=== PATIENT | female | born 1990 | race Caucasian/White ===

== ENCOUNTER 2020-04-30 18:02 | Inpatient (IN) | payer MEDICAID, SELFPAY ==
[2020-04-30 19:10] VITALS: BP 113/74; PULSE 85; RESP 18; TEMP 36.8; O2SAT 99; BMI 17.3
--- NOTE | 2020-04-30 19:57 | ED_ITS ---
HPI - Psych General: Chief Complaint: Psychiatric Symptoms Stated Complaint: mhe Time Seen by Provider: 04/30/20 19:41 Source: patient Mode of arrival: ambulatory Limitations: no limitations History of Present Illness: HPI Narrative: Rita is a 29-year-old female who comes in complaining of suicidal ideation. Patient states she is depressed but is also had a spiritual awakening. She has no specific plan at this time but she believes she is a significant risk to herself should she go home. She is requesting admission for further stabilization and treatment. Review of Systems Const: Denies: fever(s), chills, body aches, fatigue, malaise or diaphoresis Eyes: Denies: change in vision, blurry vision, photophobia, eye discomfort, eye discharge, eye redness or yellow eyes ENMT: Denies: throat pain, odynophagia, hoarseness, swelling of lips/tongue, ear or mastoid pain, ear discharge, change in hearing or nasal discharge Card: Denies: chest pain, palpitations, irregular heart rhythm, edema, lightheadedness, syncope, pre-syncope, dyspnea on exertion or orthopnea Resp: Denies: dyspnea, productive cough, non-productive cough, wheezing, hemoptysis or chest congestion GI: Denies: abdominal pain, nausea, vomiting, hematemesis, coffee ground emesis, heartburn, diarrhea, constipation, GI cramping, hematochezia or melena : Denies: flank pain, dysuria, urinary frequency, urinary urgency or hematuria Musc: Denies: neck pain, back pain, extremity pain, extremity swelling, joint pain, joint swelling, joint redness, joint warmth or joint stiffness Skin/Breast: Denies: rash, pruritus, erythema, skin pain or skin tenderness Neuro: Denies: headache(s), numbness in extremities, weakness in extremities, sensory changes, lack of coordination, difficulty walking, dizziness, vertigo, confusion, Slurred speech present or seizure-like activity Asad/Lymph: Denies: easy bruising, easy bleeding, petechiae, purpura or e nlarged lymph nodes All/Imm: Denies: urticaria, throat swelling, tongue swelling, facial swelling or acute wheezing [facility] ED PFSH: Medical History (Updated 04/30/20 @ 20:34 by Kathryn Du) No pertinent past medical history Physical Exam Const: COMMON NORMALS: no acute distress, patient oriented x3, no limitations and alert GENERAL APPEARANCE: cooperative HENMT: COMMON NORMALS: normocephalic, atraumatic, external ears normal, EAC's normal and Normal external nose present HEAD & SCALP: normal to inspection, normocephalic and atraumatic FACE & SINUS: normal facial exam and face symmetric NOSE: Normal external nose present and Normal nares present EXTERNAL EAR: Yes external ears normal EXTERNAL AUDITORY CANAL: EAC's normal MOUTH: Normal oral and palatal mucosa present, lip normal and tongue normal Eye: COMMON NORMALS: Equal, round and reactive pupils present and conjunctivae normal GENERAL EYE: appearance normal, both eyes and all related structures ALIGNMENT: Yes alignment normal PERIORBITAL: periorbital findings normal EYELID: eyelids normal CONJUNCTIVA: Yes conjunctivae normal SCLERA: sclerae normal PUPIL: Yes Equal, round and reactive pupils present Neck/C-Spine: COMMON NORMALS: full ROM, no lymphadenopathy, supple, no meningeal signs and no JVD GENERAL: Yes normal visual inspection and Yes trachea midline Chest: COMMONS NORMALS: normal inspection of the chest and normal palpation of entire chest wall Resp: COMMON NORMALS: normal respiratory effort, No retractions, No use of accessory muscles and clear to auscultation bilaterally EFFORT & INSPECTION: Yes able to speak in complete sentences and Yes symmetric chest movement AUSCULTATION: clear to auscultation bilaterally, no crackles, no rales, no rhonchi and no wheezes Cardio: COMMON NORMALS: no JVD, regular rate, regular rhythm, S1 normal heart sound present and S2 normal heart sound present RATE: regular rate RHYTHM: regular rhythm HEART SOUNDS: S1 normal heart sound present, S2 normal heart sound present, no click, no gallops, no murmurs and no rubs GI: COMMON NORMALS: Soft to palpation and No hepatosplenomegaly present PALPATION: Yes Soft to palpation, No Tenderness to palpation present (GI), No Guarding due to palpation present (GI), No Rigid due to palpation, Yes No hepatosplenomegaly present, No Hernia present, No Palpable mass present and No Pulsatile mass present : COMMON NORMALS: Yes no CVA tenderness BLADDER/KIDNEY EXAM: Yes no CVA tenderness EXTERNAL FEMALE EXAM: No Hernia present Back/Pelvis: COMMON NORMALS: no CVA tenderness, thoracic and lumbar spine normal to inspection, no thoracic nor lumbar tenderness and thoraco-lumbar ROM normal Extremity: COMMON NORMALS: normal to inspection, full ROM, capillary refill normal, no joint enlargement, no clubbing, cyanosis or edema and no calf tenderness Neuro: COMMON NORMALS: patient oriented x3, CN's II-XII intact bilaterally, moves all extremities, no focal motor deficits and no sensory deficits noted SENSORIUM/ORIENTATION: Yes alert MENINGEAL SIGNS: Yes no meningeal signs SPEECH: speech normal Psych: COMMON NORMALS: mental status grossly normal, Normal thought process present, cooperative, normal affect, speech normal and activity/motor behavior normal SPEECH: Yes normal speech THOUGHT PROCESS: Normal thought process present Skin: COMMON NORMALS: no rashes or lesions noted, turgor normal, no jaundice, no petechiae and no mottling GENERAL SKIN EXAM: no rashes or lesions noted and turgor normal MDM - Psych 2 MDM Narrative: Medical decision making narrative: The case was reviewed with Dr. Arteaga and he agrees to admit to the neuropsychiatric unit for further evaluation and care. EKG Data^: EKG 1: Attestation: I personally reviewed and interpreted this EKG as follows: EKG interpretation date: 04/30/20 EKG interpretation time: 20:20 Interpretation: Normal sinus rhythm at 60 beats a minute, normal axis, no blocks, normal intervals. Normal inverted juvenile T waves. Discharge Plan Discharge Patient Disposition: Admitted As Inpatient Admit Provider: Len Arteaga Clinical Impression: Suicidal ideation, Acute psychosis Condition: Stable Discharge Date/Time: 04/30/20 22:02 Coding Level of Care Code ED Cigar Packer for Chg Fwd Exam Comprehensive
[2020-04-30 20:45] LABS: Basophils # 0.1 10^3/uL (0.0-0.1); Basophils % 0.7 %; Eosinophils % 0.4 %; Hematocrit 47.3 % (37.0-47.0); Hemoglobin 15.7 g/dL (11.5-15.3); Lymphocytes # 1.9 10^3/uL (0.8-4.8); Lymphocytes % 22.5 %; Mean Corpuscular HGB Conc 33.2 g/dL (30.0-36.0); Mean Corpuscular Hemoglobin 29.4 pg (28.0-34.0); Mean Corpuscular Volume 88.6 fL (81-99); Mean Platelet Volume 11.4 fL (7.4-10.4); Monocytes # 0.7 10^3/uL (0.2-0.9); Monocytes % 8.3 %; Neutrophils # 5.65 10^3/uL (1.8-7.7); Neutrophils % 67.9 %; Nucleated Red Blood Cells % 0 %; Platelet Count 317 10^3/cmm (130-400); Red Blood Count 5.34 10^6/uL (4.1-5.3); Red Cell Distribution Width 13.3 % (12.1-15.1); White Blood Count 8.3 10^3/uL (4.0-10.0)
[2020-04-30 20:55] LABS: Add Urine Microscopic? YES; Bilirubin Urine 1+ (Negative); Blood Urine Trace (Negative); Glucose Urine UA Norm (Normal); Ketones Urine 1+ (Negative); Leukocyte Esterase Urine 1+ (Negative); Nitrate Urine Negative (Negative); Protein Urine Trace (Negative); Specific Gravity, Urine 1.025 (1.005-1.030); Urine Color Yellow (Yellow); Urobilinogen Urine 1 mg/dL (Negative); pH Urine 5 (5-7)
[2020-04-30 20:58] LABS: Add Urine Culture? No; Bacteria Urine 4+ /hpf; Mucus Urine 4+ /hpf; RBC Urine 0-4 /hpf (0-2); Squamous Epithelial Cell Urine 40-55 /hpf (0-5); WBC Urine 15-25 /hpf (0-5)
[2020-04-30 21:15] LABS: Alanine Aminotransferase 7 U/L (0-33); Albumin Level 5.4 g/dL (3.5-5.2); Alkaline Phosphatase 65 IU/L (35-105); Anion Gap 16.9 (5-19); Aspartate Amino Transferase 17 U/L (0-32); Blood Urea Nitrogen 5 mg/dL (6-20); Calcium 9.8 mg/dL (8.5-10.5); Carbon Dioxide 28 mmol/L (22-29); Chloride 97 mmol/L (98-107); Globulin 3.2 g/dL (1.3-4.6); Glomerular Filtration Rate 84.2 mL/min (90-130); Glucose 115 mg/dL (65-115); Osmolality Calculated 286 mOsm/kg (285-295); Sodium 139 mmol/L (136-145); Thyroid Stimulating Hormone 1.24 uIU/mL (0.27-4.20); Total Bilirubin 0.5 mg/dL (0.15-1.2); Total Protein 8.6 g/dL (6.6-8.7)
[2020-04-30 21:16] LABS: Acetaminophen < 5.0 ug/mL (10-30); Alcohol Level < 10 mg/dL (0-10); Salicylate < 0.3 mg/dL (3-10)
[2020-04-30 21:17] LABS: Potassium 2.9 mmol/L (3.5-5.1)
[2020-04-30 21:21] LABS: Amphetamines Screen Urine Negative (Negative); Barbiturates Screen Urine Negative (Negative); Benzodiazepines Screen Urine Negative (Negative); Cocaine Screen Urine Negative (Negative); Opiate Screen Urine Negative (Negative); PCP Screen Urine Negative (Negative); THC Screen Urine Positive (Negative)
[2020-04-30] MEDS: potassium chloride ER 10 mEq Tablet 60 MEQ PO (21:37)
[2020-04-30] MEDS: LORazepam 1 mg Tablet PO (21:38)
[2020-04-30 21:40] LABS: HCG Qualitative Urine. Negative (Negative)
[2020-04-30 21:57] LABS: Magnesium 2.3 mg/dL (1.7-2.3)
[2020-04-30 22:03] LABS: HCG, Serum Qual Negative (Negative)
[2020-04-30 22:14] VITALS: BP 122/83; PULSE 79; RESP 17; TEMP 36.6; O2SAT 97
--- NOTE | 2020-04-30 22:58 | PC.NURSE ---
Skin assessment completed by female staff members revealed no wounds or injuries.
[2020-05-01 06:00] VITALS: BP 87/57; PULSE 71; RESP 17; TEMP 36.3; O2SAT 98
[2020-05-01] MEDS: hyDROXYzine 25 mg Capsule 50 MG PO ×2 (09:42→16:25)
--- NOTE | 2020-05-01 09:46 | PC.NURSE ---
PRN VISTARIL ADMINISTERED VISTARIL 50MG PO FOR PT C/O INCREASING ANXIETY. WILL MONITOR FOR MEDICATION EFFECTIVENESS.
[2020-05-01 14:00] VITALS: BP 137/99; PULSE 89; RESP 18; TEMP 36.6
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
[2020-05-01 17:42] LABS: Alanine Aminotransferase < 5 U/L (0-33); Albumin Level 4.4 g/dL (3.5-5.2); Alkaline Phosphatase 52 IU/L (35-105); Anion Gap 15.7 (5-19); Aspartate Amino Transferase 13 U/L (0-32); Blood Urea Nitrogen 11 mg/dL (6-20); Calcium 9.8 mg/dL (8.5-10.5); Carbon Dioxide 23 mmol/L (22-29); Chloride 101 mmol/L (98-107); Globulin 2.7 g/dL (1.3-4.6); Glomerular Filtration Rate 84.2 mL/min (90-130); Glucose 94 mg/dL (65-115); Osmolality Calculated 281 mOsm/kg (285-295); Potassium 3.7 mmol/L (3.5-5.1); Sodium 136 mmol/L (136-145); Total Bilirubin 0.5 mg/dL (0.15-1.2); Total Protein 7.1 g/dL (6.6-8.7)
[2020-05-01 19:39] VITALS: BP 101/70; PULSE 77; RESP 17; TEMP 37.1; O2SAT 96
[2020-05-01] MEDS: gabapentin 400 mg Capsule PO (20:46)
[2020-05-01] MEDS: quetiapine 25 mg Tablet 50 MG PO (20:46)
[2020-05-02 06:00] VITALS: BP 96/62; PULSE 59; RESP 16; TEMP 36.6; O2SAT 98
--- NOTE | 2020-05-02 13:26 | NPU.GN ---
Rita was not super active in the group session but was paying attention. There were a few instances that she did speak up and participated well. She mostly listened but did engage with the group well when she chose to.
--- NOTE | 2020-05-02 13:51 | P.PN_ITS ---
Subjective NPU Subjective: Interval history: Other presents today reporting that she is feeling a little better. We discussed the possibility of utilizing something other than the Seroquel to help with her thought disorder including the risks, benefits and alternatives and she understood and reported desire to only stay on the medication she is on. She did report that she would be open to increasing the Seroquel tomorrow but is looking towards relieving as soon as possible. She agreed that she would work with the social work team to make sure appropriate follow-up was in place. She reports eating okay and sleeping better. Mental Status Exam MSE Comments: This is an underweight white female with adequate dress, grooming and eye contact. With slightly abnormal facies with some dental abno rmalities in shape and structure. No abnormal movements. Cooperative with exam in no acute distress. Speech was decreased rate and volume and slightly dysarthric. Mood described as good, affect elevated. Thought process mostly organized. Thought content: Patient denied any suicidal or homicidal ideation, there were no delusions reported but she does have paranoid and hyperreligious/hyper spiritual delusions, there is no auditory visual hallucinations reported. Attention and concentration were intact in memory was somewhat reliable, but none were formally tested. She is alert and oriented x3. Insight and judgment are limited, impulse control is limited, intellectual ability is impaired. Vitals/I&O/Wt Last Vital Signs Temp 97.8 F 05/02/20 06:00 Pulse 59 L 05/02/20 06:00 Resp 16 05/02/20 06:00 BP 96/62 05/02/20 06:00 Pulse Ox 98 05/02/20 06:00 Weight last 48 hrs Weight 47.627 kg Weight 47.174 kg Data NPU : 04/30/20 20:26 05/01/20 17:00 A&P Additional A&P Information (1) Suicidal ideation: (2) Acute psychosis: This is a 29-year-old white female with a long history of mental health issues who presents with some active psychosis reporting a possible openness to a trial of medication if we can identify what she was on previously. 1. Continue current medication. 2. Continue every 15 minute checks for safety. 3. Intermittent, group and milieu therapy. 4. Encourage follow-up with sober living treatment at the highest level of care to which she is willing to commit. Involuntary Hold Information 96 Hour Hold: 96 Hour Involuntary Admission: Yes 96 Hour Hold Ending Date: 04/29/20 96 Hour Hold Ending Time: 00:01 Attestations NPU Medical Necessity Statement*: Inpatient hospitalization is medically necessary and the clinically appropriate intervention at this time. We will add/monitor medications and make changes as indicated. Likely length of stay 2-4 days. Coding Level of Care Code Acute Coroner Forensic Technician for [facility] [place]
[2020-05-02 14:00] VITALS: BP 110/75; PULSE 59; RESP 18; TEMP 37.1; O2SAT 100
--- NOTE | 2020-05-02 14:54 | PC.RESP ---
SMOKING CESSATION INFORMATION SENT TO PATIENT.
[2020-05-02 19:45] VITALS: BP 116/79; PULSE 69; RESP 16; TEMP 36.9; O2SAT 96
[2020-05-02] MEDS: quetiapine 25 mg Tablet 50 MG PO (20:32)
[2020-05-02] MEDS: gabapentin 400 mg Capsule PO (20:33)
[2020-05-03 06:00] VITALS: BP 136/91; PULSE 80; RESP 17; TEMP 36.5; O2SAT 98
[2020-05-03] MEDS: escitalopram 10 mg Tablet PO (12:05)
[2020-05-03 13:21] VITALS: BP 116/77; PULSE 65; RESP 18; TEMP 36.9; O2SAT 97
[2020-05-03 13:59] VITALS: BP 116/77; PULSE 65; RESP 18; TEMP 36.9; O2SAT 97
--- NOTE | 2020-05-03 15:15 | PM.NPN ---
Subjective NPU Subjective: Interval history: Rita presents today reporting that she feels like she is doing okay on the medication but still having some depression/anxiety. We talked about her past medications and discussed the risks, benefits and alternatives of a trial of Lexapro and she understood and agreed to proceed as documented in this note. She has been talking to her family and reports that after discharge she definitely has a place to go but everyone just wants to make sure that she is doing well when she discharges. She reports that she is eating okay and sleeping a little better. Mental Status Exam MSE Comments: This is an underweight white female with adequate dress, grooming and eye contact. With slightly abnormal facies with some dental abnormalities in shape and structure. No abnormal movements. Cooperative with exam in no acute distress. Speech was more normal rate and volume and slightly dysarthric. Mood described as okay, affect more calm. Thought process mostly organized. Thought content: Patient denied any suicidal or homicidal ideation, there were no delusions reported and she is having less paranoid and hyperreligious/hyper spiritual delusions, there is no auditory visual hallucinations reported. Attention and concentration were intact in memory was somewhat reliable, but none were formally tested. She is alert and oriented x3. Insight and judgment are limited, but improving, impulse control is limited, intellectual ability is impaired. Vitals/I&O/Wt Last Vital Signs Temp 97.7 F 05/03/20 20:03 Pulse 64 05/03/20 20:03 Resp 18 05/03/20 20:03 BP 107/72 05/03/20 20:03 Pulse Ox 98 05/03/20 20:03 Data NPU : 04/30/20 20:26 05/01/20 17:00 A&P Assessment and plan (1) Anxiety and depression: Status: Acute Additional A&P Information (1) Suicidal ideation: (2) Acute psychosis: This is a 29-year-old white female with a long history of mental health issues who presents with some active psychosis reporting a possible openness to a trial of medication if we can identify what she was on previously. 1. Continue current medication. Except add Lexapro 10 mg p.o. every morning. 2. Continue every 15 minute checks for safety. 3. Intermittent, group and milieu therapy. 4. Encourage follow-up with sober living treatment at the highest level of care to which she is willing to commit. Involuntary Hold Information 96 Hour Hold: 96 Hour Involuntary Admission: Yes 96 Hour Hold Ending Date: 04/29/20 96 Hour Hold Ending Time: 00:01 Attestations NPU Medical Necessity Statement*: Inpatient hospitalization is medically necessary and the clinically appropriate intervention at this time. We will add/monitor medications and make changes as indicated. Likely length of stay 1-3 days. Coding Level of Care Code Acute Patient Access Manager for [facility] Fwd Diagnoses Anxiety and depression F41.9; F32.9
[2020-05-03 20:03] VITALS: BP 107/72; PULSE 64; RESP 18; TEMP 36.5; O2SAT 98
[2020-05-03] MEDS: gabapentin 400 mg Capsule PO (20:24)
[2020-05-03] MEDS: quetiapine 100 mg Tablet PO (20:24)
[2020-05-04 06:00] VITALS: BP 101/71; PULSE 68; RESP 17; TEMP 36.7; O2SAT 98
[2020-05-04] MEDS: escitalopram 10 mg Tablet PO (07:44)
--- NOTE | 2020-05-04 13:21 | NPU.GN ---
Rita was the first to speak up at group this afternoon and had a lot of personal input that she added to the session. She spoke positively about her experiences and how they have shaped her.
--- NOTE | 2020-05-04 13:57 | P.PN_ITS ---
Subjective NPU Subjective: Interval history: Today reporting that she was tolerating the medications well. Her had called and expressed some concerns about the Neurontin. We had a discussion of the risk benefits and alternatives to all the medications and she understood and agreed to proceed as documented this note. We agreed to leave the Neurontin as it is with a plan for family support around the medication. We also discussed the plan for discharge tomorrow. She reports she is eating and sleeping fine. Mental Status Exam MSE Comments: This is an underweight white female with adequate dress, grooming and eye contact. With slightly abnormal facies with some dental abnormalities in shape and structure. No abnormal movements. Cooperative with exam in no acute distress. Speech was more normal rate and volume and slightly dysarthric. Mood described as better, affect more calm. Thought process mostly organized. Thought content: Patient denied any suicidal or homicidal ideation, there were no delusions reported or noted, there is no auditory or visual hallucinations reported. Attention and concentration were intact and memory was mostly reliable, but none were formally tested. She is alert and oriented x3. Insight and judgment are improving, impulse control is limited, but improving, intellectual ability is limited. Vitals/I&O/Wt Last Vital Signs Temp 97.7 F 05/04/20 22:00 Pulse 69 05/04/20 22:00 Resp 19 H 05/04/20 22:00 BP 106/67 05/04/20 22:00 Pulse Ox 96 05/04/20 22:00 Data NPU : 04/30/20 20:26 05/01/20 17:00 A&P Assessment and plan (1) Acute psychosis: Status: Acute (2) Suicidal ideation: Status: Acute (3) Anxiety and depression: Status: Acute Additional A&P Information This is a 29-year-old white female with a long history of mental health issues who presents with some active psychosis reporting a possible openness to a trial of medication if we can identify what she was on previously. 1. Continue current medication. 2. Continue every 15 minute checks for safety. 3. Intermittent, group and milieu therapy. 4. Encourage follow-up with sober living treatment at the highest level of care to which she is willing to commit. Involuntary Hold Information 96 Hour Hold: 96 Hour Involuntary Admission: Yes 96 Hour Hold Ending Date: 04/29/20 96 Hour Hold Ending Time: 00:01 Attestations NPU Medical Necessity Statement*: Inpatient hospitalization is medically necessary and the clinically appropriate intervention at this time. We will add/monitor medications and make changes as indicated. Likely length of stay 1-2 days. Tentative plan for discharge tomorrow. 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
[2020-05-04 14:00] VITALS: BP 101/68; PULSE 55; RESP 18; TEMP 36.6; O2SAT 98
[2020-05-04] MEDS: quetiapine 100 mg Tablet PO (21:22)
[2020-05-04] MEDS: hyDROXYzine 25 mg Capsule 50 MG PO (21:22)
[2020-05-04] MEDS: gabapentin 400 mg Capsule PO (21:22)
[2020-05-04 22:00] VITALS: BP 106/67; PULSE 69; RESP 19; TEMP 36.5; O2SAT 96
[2020-05-05 05:55] VITALS: BP 117/75; PULSE 77; RESP 16; TEMP 36.8; O2SAT 98
[2020-05-05] MEDS: escitalopram 10 mg Tablet PO (08:14)
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
[2020-05-05 12:48] VITALS: BP 117/75; PULSE 77; RESP 16; TEMP 36.8; O2SAT 98
[2020-05-05 22:00] VITALS: BP 117/75; PULSE 77; RESP 16; TEMP 36.8; O2SAT 98
== END 2020-05-05 13:22 | disposition home or self-care (01) | DRG 885 ==
LOC: ER 19:41 → NP 20:32
PROVIDERS: Emergency Medicine; Nurse Practitioner Family; Admitting Provider Psychiatry & Neurology Psychiatry; Family Provider Family Medicine; PCP Specialist; Visit Provider Psychiatry & Neurology Psychiatry
DX: F23 Brief psychotic disorder (principal); R45.851 Suicidal ideations; F41.8 Other specified anxiety disorders
CPT/HCPCS: 12345; 36415; 80053; 80306; 80307; 81001; 81025; 83735; 84443; 84703; 85025; 99284

== ENCOUNTER → 2020-06-14 08:40 | Outpatient (BNVA) | payer MEDICAID, SELFPAY | PROVIDERS: Family Provider Family Medicine; PCP Specialist; Visit Provider Psychiatry & Neurology Psychiatry | DX: F41.9 Anxiety disorder, unspecified (principal); F32.9 Major depressive disorder, single episode, unspecified; F79 Unspecified intellectual disabilities | CPT/HCPCS: 90792 ==

== ENCOUNTER → 2020-08-09 08:16 | Outpatient (BNVA) | payer BC, SELFPAY | PROVIDERS: Family Provider Family Medicine; PCP Specialist; Visit Provider Psychiatry & Neurology Psychiatry | DX: F41.9 Anxiety disorder, unspecified (principal); F32.9 Major depressive disorder, single episode, unspecified; F79 Unspecified intellectual disabilities | CPT/HCPCS: 99214 ==

== ENCOUNTER → 2020-08-30 14:19 | Outpatient (BNVA) | payer BC, SELFPAY | PROVIDERS: Family Provider Family Medicine; PCP Specialist; Visit Provider Psychiatry & Neurology Psychiatry | DX: F32.9 Major depressive disorder, single episode, unspecified (principal); Z79.899 Other long term (current) drug therapy | CPT/HCPCS: 80061; 83036 ==

== ENCOUNTER → 2020-11-04 12:53 | Outpatient (BNVA) | payer BC, SELFPAY ==
[2020-09-09 11:08] VITALS: BP 112/76; BMI 19.3
== END ==
PROVIDERS: Family Provider Family Medicine; PCP Specialist; Visit Provider Counselor Professional
DX: F41.9 Anxiety disorder, unspecified (principal); F32.9 Major depressive disorder, single episode, unspecified; F84.0 Autistic disorder
CPT/HCPCS: 90834

== ENCOUNTER → 2020-11-29 12:47 | Outpatient (BNVA) | payer BC, SELFPAY ==
[2020-09-09 11:08] VITALS: BP 112/76; BMI 19.3
== END ==
PROVIDERS: Family Provider Family Medicine; PCP Specialist; Visit Provider Psychiatry & Neurology Psychiatry
DX: F41.9 Anxiety disorder, unspecified (principal); F32.9 Major depressive disorder, single episode, unspecified; F79 Unspecified intellectual disabilities
CPT/HCPCS: 99214

== ENCOUNTER → 2021-01-31 12:48 | Outpatient (BNVA) | payer BC, SELFPAY ==
[2020-09-09 11:08] VITALS: BP 112/76; BMI 19.3
== END ==
PROVIDERS: PCP Specialist; Visit Provider Psychiatry & Neurology Psychiatry
DX: F41.9 Anxiety disorder, unspecified (principal); F32.9 Major depressive disorder, single episode, unspecified; F41.1 Generalized anxiety disorder; F79 Unspecified intellectual disabilities
CPT/HCPCS: 99214

== ENCOUNTER 2022-01-02 21:45 | Emergency (ER) | payer BC, MEDICAID, SELFPAY ==
[2020-09-09 11:08] VITALS: BP 112/76; BMI 19.3
[2022-01-02 21:59] VITALS: BP 101/70; PULSE 109; RESP 16; TEMP 36.4; O2SAT 98
--- NOTE | 2022-01-02 22:05 | W.ED.DENTAL ---
HPI - Dental/Oral General: Chief complaint: Dental/Oral Stated complaint: Toothache Time Seen by Provider: 01/02/22 21:46 History of Present Illness: Patient is a 31-year-old female comes to the ED with dental pain. Symptoms started approximately 3 days ago. She states her dental pain is mild and she rates it currently 1 out of 10. Her gums on the upper left jaw are swollen and painful. Denies any fevers or any other complaints. Teeth map: 1. extensive dental decay and gingival swelling Associated symptoms: Denies fever(s) or odynophagia Review of Systems Const: Denies: fever(s), chills or fatigue Eyes: Denies: change in vision or eye discomfort ENMT: Reports: dental pain; Denies: throat pain, odynophagia, nasal discharge or nasal congestion Card: Denies: chest pain, palpitations, edema, swelling of feet/ankles, dyspnea on exertion or orthopnea Resp: Denies: dyspnea, productive cough or non-productive cough GI: Denies: abdominal pain, nausea, vomiting, diarrhea, constipation or hematochezia : Denies: flank pain, dysuria or hematuria Musc: Denies: neck pain, back pain or extremity swelling Skin/Breast: Denies: rash or new lesions Neuro: Denies: headache(s), numbness in extremities or weakness in extremities PFSH ED PFSH: Medical History JAYSON (generalized anxiety disorder) Intellectual disability No pertinent past medical history Family History Other Autism Diabetes Hypertension Social History Smoking and tobacco status: current every day smoker cigarettes Packs smoked per day: 1 Years cigarettes smoked: 10 Second hand smoke exposure: Yes Alcohol intake: current Alcohol intake frequency: holidays/special occasions only Adopted: No Caregiver/support person: No Lives independently: Yes Household members: spouse and children Housing: House Marital status: Marital status details: 11 years Number of children: 1 Number of grandchildren: 0 Highest education level completed: 11th Grade Education level details: working on [employer] service: No Current occupational status: unemployed Pets and animals: Yes Pets & animals: cat(s) and dog(s) History of recent travel: Yes (Went to [place] last saturday) Out of state: Yes Out of country: No Leisure activites: games and other Leisure activities details: watch hulu and netflicks Sexually active: Yes Current gender identity: Female Karen/Evangelical: None Special karen needs: No Agree to transfusion: Yes Financial difficulty paying for basics: Hard Female Reproductive History: Date of last menstrual period: 08/16/20 Para: 1 Spontaneous abortions: No Physical Exam Const: COMMON NORMALS: no acute distress, patient oriented x3 and alert GENERAL APPEARANCE: cooperative and comfortable HENMT: COMMON NORMALS: normocephalic HEAD & SCALP: normocephalic MOUTH: Normal oral and palatal mucosa present TEETH & GINGIVA: Yes caries and Yes poor dentition TEETH & GINGIVA IMAGES: 1. Patient has extensive dental caries and decay with teeth numbers 12 through 16 along with gingival edema and tenderness. THROAT: posterior oropharynx normal and uvula midline Neck/C-Spine: COMMON NORMALS: supple GENERAL: Yes normal visual inspection Resp: COMMON NORMALS: normal respiratory effort, No retractions, No use of accessory muscles and clear to auscultation bilaterally AUSCULTATION: clear to auscultation bilaterally Cardio: COMMON NORMALS: regular rate, regular rhythm, S1 normal heart sound present, S2 normal heart sound present, No gallops present (Cardio), No clicks present (Cardio), No murmurs present (Cardio) and Peripheral pulses 2+ throughout RATE: regular rate RHYTHM: regular rhythm HEART SOUNDS: S1 normal heart sound present and S2 normal heart sound present PERIPHERAL PULSES: Peripheral pulses 2+ throughout GI: COMMON NORMALS: Normal to inspection, nondistended, normoactive bowel sounds present, Soft to palpation, non-tender and no masses PALPATION: Yes Soft to palpation : COMMON NORMALS: Yes no CVA tenderness BLADDER/KIDNEY EXAM: Yes no CVA tenderness Back/Pelvis: COMMON NORMALS: no CVA tenderness Extremity: COMMON NORMALS: normal to inspection Neuro: COMMON NORMALS: patient oriented x3 and moves all extremities SENSORIUM/ORIENTATION: Yes alert Skin: GENERAL SKIN EXAM: dry skin Course Vital Signs: Vital signs: Vital Signs Temperature 97.5 F L 01/02/22 21:59 Pulse Rate 109 H 01/02/22 21:59 Respiratory Rate 16 01/02/22 21:59 Blood Pressure 101/70 01/02/22 21:59 Pulse Oximetry 98 01/02/22 21:59 MDM - Dental/Oral Medical Decision Making Patient is a 31-year-old female comes to the ED with dental pain and gingival swelling on back upper left jaw. Patient says her pain is mild and rates it a 1 out of 10. Vitals are stable. Patient has poor dentition and extensive dental caries throughout her mouth. Worst dental decay and caries in teeth #12 through 16 along with gingival edema and tenderness. Patient diagnosed with infected dental caries and was given a dose of clindamycin here in the ED. She was discharged home with prescription for clindamycin, lidocaine viscus and Tylenol. She was told the contact her dentist and set up an appoint with them [place] to address dental pain. Return ED precautions given. Patient is done agree with plan. Discharge Plan Discharge Patient Disposition: Home Clinical Impression: Infected dental caries Condition: Stable Prescriptions: New clindamycin HCl 150 mg capsule 300 mg PO QID 7 Days Qty: 56 0RF Lidocaine Viscous 2 % solution 1 applic mucous membrane BID PRN (Reason: pain) Qty: 100 0RF Tylenol Extra Strength 500 mg tablet 1,000 mg PO Q8H PRN (Reason: fever or pain) Qty: 20 0RF No Action escitalopram oxalate 20 mg tablet 20 mg PO DAILY 30 Days Qty: 30 0RF gabapentin 400 mg capsule 400 mg PO TID 30 Days Qty: 90 0RF prazosin 1 mg capsule 1 mg PO .qhs 30 Days Qty: 30 0RF quetiapine 100 mg tablet 200 mg PO BEDTIME 30 Days Qty: 60 0RF Discharge Orders: Discharge ED (Routine); Ordered 01/02/22 Ordered By: Yaron Jackson Referrals: Dhaval Nicholson MD [Primary Care Provider] - Discharge Diet: Regular Discharge Activity: Resume usual activity Patient Instructions: Dental Caries (Cavities) Activity Restrictions/Additional Instructions: Follow-up with dentist as soon as possible to have dental pain evaluated. Take medications as prescribed. Return to the ER or your medical provider if condition worsens. Please read and understand discharge instructions. Thank you for choosing [facility] for your healthcare needs today. Please realize this is an emergency room and that we are providing you with a medical screening exam and this may not be complete and all inclusive of all the testing and or work up that you may need to determine your ailment or severity of your illness. It is very important that you follow up as instructed or that you return to the Emergency Department should you have concerns or if your condition changes or worsens in any way. Coding Level of Care Code ED Auto Repair Technician for [place] [place]
[2022-01-02 22:21] VITALS: BP 101/70; PULSE 109; RESP 16; TEMP 36.4; O2SAT 98
== END 2022-01-02 22:22 | disposition home or self-care (01) ==
PROVIDERS: Emergency Provider Physician Assistant; PCP Specialist
DX: K02.9 Dental caries, unspecified (principal)
CPT/HCPCS: 99283

== ENCOUNTER 2023-03-09 18:29 | Inpatient (IN) | payer BC, SELFPAY ==
[2020-09-09 11:08] VITALS: BP 112/76; BMI 19.3
[2023-03-09 18:36] VITALS: BP 104/76; PULSE 94; RESP 18; TEMP 36.8; O2SAT 95; BMI 17.3
[2023-03-09 19:48] LABS: Basophils # 0.1 10^3/uL (0.0-0.1); Basophils % 0.9 %; Eosinophils # 0.1 10^3/uL (0.0-0.8); Eosinophils % 1.3 %; Hematocrit 41.9 % (37.0-47.0); Hemoglobin 13.9 g/dL (11.5-15.3); Lymphocytes # 1.7 10^3/uL (0.8-4.8); Lymphocytes % 16.1 %; Mean Corpuscular HGB Conc 33.2 g/dL (30.0-36.0); Mean Corpuscular Hemoglobin 30.2 pg (28.0-34.0); Mean Corpuscular Volume 91.1 fl (81-99); Mean Platelet Volume 10.8 fL (7.4-10.4); Monocytes # 0.6 10^3/uL (0.2-0.9); Neutrophils # 7.77 10^3/uL (1.8-7.7); Neutrophils % 75.5 %; Nucleated Red Blood Cells % 0 %; Platelet Count 278 10^3/cmm (130-400); Red Cell Distribution Width 14.1 % (12.1-15.1); White Blood Count 10.3 10^3/uL (4.0-10.0)
[2023-03-09 19:58] LABS: HCG Qualitative Urine. Negative (Negative)
[2023-03-09 20:04] VITALS: PULSE 96; RESP 16; O2SAT 96
[2023-03-09 20:10] LABS: Alanine Aminotransferase 10 U/L (0-33); Albumin Level 4.7 g/dL (3.5-5.2); Alkaline Phosphatase 69 U/L (35-105); Anion Gap 15.1 (5-19); Aspartate Amino Transferase 15 U/L (0-32); Blood Urea Nitrogen 5 mg/dL (6-20); Calcium 9.2 mg/dL (8.5-10.5); Carbon Dioxide 27 mmol/L (22-29); Chloride 102 mmol/L (98-107); Globulin 2.8 g/dL (1.3-4.6); Glomerular Filtration Rate 96.4 mL/min (90-130); Glucose 93 mg/dL (65-115); Osmolality Calculated 289 mOsm/kg (285-295); Potassium 3.1 mmol/L (3.5-5.1); Sodium 141 mmol/L (136-145); Total Bilirubin 0.2 mg/dL (0.15-1.2); Total Protein 7.5 g/dL (6.6-8.7)
[2023-03-09 20:11] LABS: Acetaminophen < 5.0 ug/mL (10-30); Alcohol Level < 10 mg/dL (0-10); Salicylate < 0.3 mg/dL (3-10)
[2023-03-09] MEDS: potassium chloride ER 20 mEq Tablet 40 MEQ PO (20:44)
--- NOTE | 2023-03-09 21:35 | ED.C_ITS ---
HPI - Psych General: Chief Complaint: Psychiatric Symptoms Stated Complaint: SI Time Seen by Provider: 03/09/23 19:05 Source: patient History of Present Illness: 32-year-old female who abraded her wrist today. She states she continues to have suicidal ideations. She stopped from cutting herself deeper, because she thought of her son who is 13. complaint: suicidal ideation Onset (ago): hour(s) Review of Systems Const: Denies: fever(s) Card: Denies: chest pain or palpitations Resp: Denies: dyspnea GI: Denies: abdominal pain or vomiting PFS ED PFSH: Medical History JAYSON (generalized anxiety disorder) Intellectual disability No pertinent past medical history Psychiatric care Family History Other Autism Diabetes Hypertension Social History Smoking and tobacco status: current every day smoker cigarettes Packs smoked per day: 1 Years cigarettes smoked: 10 Second hand smoke exposure: Yes Alcohol intake: current Alcohol intake frequency: holidays/special occasions only Substance/Drug Use: former Date of last use: April 2020 Adopted: No Caregiver/support person: No Lives independently: Yes Household members: spouse and children Housing: House Marital status: Marital status details: 11 years Number of children: 1 Number of grandchildren: 0 Highest education level completed: 11th Grade Education level details: working on [employer] service: No Current occupational status: unemployed Pets and animals: Yes Pets & animals: cat(s) and dog(s) Leisure activites: games and other Leisure activities details: watch hulu and netLookeryicks Sexually active: Yes Do you think of yourself as: Straight/Heterosexual Current gender identity: Female Karen/Scientologist: None Special karen needs: No Agree to transfusion: Yes Financial difficulty paying for basics: Hard Female Reproductive History: Date of last menstrual period: 03/09/23 Para: 1 Spontaneous abortions: No Physical Exam Const: COMMON NORMALS: no acute distress GENERAL APPEARANCE: cooperative; not ill appearing and not frail appearing HENMT: COMMON NORMALS: normocephalic, atraumatic and Normal external nose present HEAD & SCALP: normocephalic and atraumatic FACE & SINUS: normal facial exam and face symmetric NOSE: Normal external nose present Eye: COMMON NORMALS: Equal, round and reactive pupils present and EOMs intact bilaterally PUPIL: Yes Equal, round and reactive pupils present Neck/C-Spine: GENERAL: Yes trachea midline Chest: CHEST: Yes Symmetrical chest wall rise Resp: COMMON NORMALS: normal respiratory effort, No retractions, No use of accessory muscles and clear to auscultation bilaterally AUSCULTATION: clear to auscultation bilaterally Cardio: COMMON NORMALS: regular rate and regular rhythm RATE: regular rate RHYTHM: regular rhythm GI: COMMON NORMALS: Normal to inspection, nondistended, normoactive bowel sounds present Extremity: COMMON NORMALS: no pedal edema Neuro: YULIANA COMA SCALE: document GCS findings Yuliana coma scale eye opening: Spontaneous Yuliana coma scale verbal response: Orientated [place] coma scale motor response: Obey commands Yuliana coma scale total score: 15 SENSORY EXAM: Yes extremities (intact) Psych: COMMON NORMALS: speech normal SPEECH: Yes normal speech Skin: COMMON NORMALS: no rashes or lesions noted GENERAL SKIN EXAM: no rashes or lesions noted Course Vital Signs: Vital signs: Vital Signs Temperature 97.6 F 03/09/23 22:29 Pulse Rate 77 03/09/23 22:29 Respiratory Rate 16 03/09/23 22:29 Blood Pressure 109/74 03/09/23 22:29 Pulse Oximetry 95 03/09/23 22:29 Oxygen Delivery Me thod Room Air 03/09/23 22:29 MDM - Psych Medical Decision Making Medically quite stable. Potassium is low, and is repleted here in the ER. She will be admitted willingly. Spoke with psychiatry. They accept to service. Lab Data 03/09/23 19:32 03/09/23 19:32 Laboratory Results WBC 10.3 10^3/uL (4.0-10.0) H 03/09/23 19:32 RBC 4.60 10^6/uL (4.1-5.3) 03/09/23 19:32 Hgb 13.9 g/dL (11.5-15.3) 03/09/23 19:32 Hct 41.9 % (37.0-47.0) 03/09/23 19:32 MCV 91.1 fl (81-99) 03/09/23 19:32 MCH 30.2 pg (28.0-34.0) 03/09/23 19: MCHC 33.2 g/dL (30.0-36.0) 03/09/23 19: RDW 14.1 % (12.1-15.1) 03/09/23 19:32 Plt Count 278 10^3/cmm (130-400) 03/09/23 19:32 MPV 10.8 fL (7.4-10.4) H 03/09/23 19:32 Neut % (Auto) 75.5 % 03/09/23 19: Lymph % (Auto) 16.1 % 03/09/23 19:32 Alcorn % (Auto) 6.0 % 03/09/23: Eos % (Auto) 1.3 % 03/09/23: Baso % (Auto) 0.9 % 03/09/23: Neut # (Auto) 7.77 10^3/uL (1.8-7.7) H 03/09/23 19: Lymph # (Auto) 1.7 10^3/uL (0.8-4.8) 03/09/23 19: Alcorn # (Auto) 0.6 10^3/uL (0.2-0.9) 03/09/23 19: Eos # (Auto) 0.1 10^3/uL (0.0-0.8) 03/09/23 19: Baso # (Auto) 0.1 10^3/uL (0.0-0.1) 03/09/23: Nucleated RBC % (auto) 0 % 03/09/23: Nucleated RBCs # 0.0 /100WBC 03/09/23 19:32 Sodium 141 mmol/L (136-145) 03/09/23 19:32 Potassium 3.1 mmol/L (3.5-5.1) L 03/09/23 19:32 Chloride 102 mmol/L (98-107) 03/09/23 19:32 Carbon Dioxide 27 mmol/L (22-29) 03/09/23 19:32 Anion Gap 15.1 (5-19) 03/09/23 19:32 BUN 5 mg/dL (6-20) L 03/09/23 19:32 Creatinine 0.7 mg/dL (0.5-0.9) 03/09/23 19:32 GFR Calculation 96.4 mL/min (90-130) 03/09/23 19:32 Glucose 93 mg/dL (65-115) 03/09/23 19:32 Calculated Osmolality 289 mOsm/kg (285-295) 03/09/23 19:32 Calcium 9.2 mg/dL (8.5-10.5) 03/09/23 19:32 Total Bilirubin 0.2 mg/dL (0.15-1.2) 03/09/23 19:32 AST 15 U/L (0-32) 03/09/23 19:32 ALT 10 U/L (0-33) 03/09/23 19:32 Alkaline Phosphatase 69 U/L (35-105) 03/09/23 19:32 Total Protein 7.5 g/dL (6.6-8.7) 03/09/23 19:32 Albumin 4.7 g/dL (3.5-5.2) 03/09/23 19:32 Globulin 2.8 g/dL (1.3-4.6) 03/09/23 19:32 HCG, Qual Negative (Negative) 03/09/23 19:25 Salicylates < 0.3 mg/dL (3-10) L 03/09/23 19:32 Acetaminophen < 5.0 ug/mL (10-30) L 03/09/23 19:32 Ethyl Alcohol < 10 mg/dL (0-10) 03/09/23 19:32 Discharge Plan Discharge Patient Disposition: Admitted As Inpatient Admit Provider: Len Arteaga Clinical Impression: Suicidal ideation Condition: Stable Coding Level of Care Code ED Cooling Room Attendant for [place]
[2023-03-09 22:29] VITALS: BP 109/74; PULSE 77; RESP 16; TEMP 36.4; O2SAT 95
[2023-03-09 23:10] VITALS: BP 103/69; PULSE 76; RESP 16; TEMP 36.7; O2SAT 99
[2023-03-09] MEDS: hyDROXYzine 25 mg Capsule 50 MG PO (23:48)
[2023-03-09] MEDS: trazodone 50 mg Tablet PO (23:48)
[2023-03-10] LABS: Add Urine Culture? Yes; Add Urine Microscopic? YES; Bacteria Urine 4+ /hpf; Bilirubin Urine Neg (Negative); Blood Urine 3+ (Negative); Glucose Urine UA Norm (Normal); Ketones Urine Negative (Negative); Leukocyte Esterase Urine Trace (Negative); Nitrate Urine Positive (Negative); Protein Urine Neg (Negative); RBC Urine 0-4 /hpf (0-2); Squamous Epithelial Cell Urine 0-4 /hpf (0-5); Urine Appearance Hazy (CLEAR); Urine Color Yellow (Yellow); Urobilinogen Urine Norm (Negative); WBC Urine 0-4 /hpf (0-5); pH Urine 5 (5-7)
[2023-03-10 00:01] LABS: Amphetamines Screen Urine Negative (Negative); Barbiturates Screen Urine Negative (Negative); Benzodiazepines Screen Urine Negative (Negative); Cocaine Screen Urine Negative (Negative); Opiate Screen Urine Negative (Negative); PCP Screen Urine Negative (Negative); THC Screen Urine Positive (Negative)
--- NOTE | 2023-03-10 00:04 | PC.ADMIT ---
[address] [place] [address] Admission Note: The patient,Rita Askew,32 y/o, was given written information regarding hospital policies, unit procedures and contact persons. Patient's smoking status: current every day smoker. Vital Signs - 8 hr 03/09/23 18:36 03/09/23 20:04 03/09/23 22:29 Temperature 98.3 F 97.6 F Pulse Rate 94 96 77 Respiratory Rate 18 16 16 Blood Pressure 104/76 109/74 Pulse Oximetry 95 96 95 Oxygen Delivery Method Room Air Room Air Room Air 03/09/23 23:10 03/09/23 23:13 Temperature 98.1 F Pulse Rate 76 Respiratory Rate 16 Blood Pressure 103/69 Pulse Oximetry 99 Oxygen Delivery Method Room Air ARRIVED FROM ER VIA WHEELCHAIR AND STAFF. PT IS VOLUNTARY, CONSENT SIGNED. PT ARRIVED AT 2310 IN NO ACUTE DISTRESS. PT REPORTS SHE IS HERE BECAUSE MY FAMILY THINKS I'M TOO SUICIDAL. ER STAFF REPORT PT WAS WANTING TO JUMP OUT IN FRONT OF A TRAIN. PT REPORTS THAT SHE ALWAYS HEARS AND SEES VOICES. PT DENIES PAIN. PT CURRENTLY DENIES SI/HI STATES SHE FEELS BETTER NOW. PT STATES SHE ALSO WANTED TO HURT SELF WITH SCISSORS. PT REPORTS TAKING SEROQUEL 100MG Q HS AND HER HUSBANDS GABAPENTIN. ALSO STATES SHE IS SUPPOSE TO TAKE 10 MG OF LEXAPRO BUT ONLY TAKES 5 MG. REVIEWED CHART AND THE LAST PRESCRIPTIONS SHE PICKED UP WAS IN NOVEMBER OF THIS YEAR. PT IS INTELLECTUALLY DELAYED. STATES SHE IS ABLE TO READ AND WRITE. HAS BEEN DIAGNOSED WITH PTSD, ADD AND AUSTISM. PT STATES SHE HAS NEVER RECEIVED MEDICATIONS FOR THESE, AND THEY MAY ACTUALLY NOT EVEN BE REAL DIAGNOSIS. PT WAS ORIENTED TO ROOM AND UNIT. SKIN ASSESSMENT UNREMARKABLE EXCEPT NEEDLE STICK FROM ER TO LEFT AC. ALL QUESTIONS ANSWERED AND SUPPORT VOICED. PT REQUESTED MEDS TO ASSIST WITH SLEEP AND DECREASE ANXIETY. TRAZODONE 50 MG AND VISTARIL 50 MG WAS GIVEN ORDERED.
[2023-03-10 06:00] VITALS: BP 83/55; PULSE 76; RESP 16; O2SAT 97
[2023-03-10] MEDS: hyDROXYzine 25 mg Capsule 50 MG PO ×2 (08:37→19:27)
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
[2023-03-10] MEDS: nicotine 2 mg Gum BUCCAL ×3 (10:11→19:27)
[2023-03-10 14:00] VITALS: BP 95/63; PULSE 91; RESP 17; TEMP 37; O2SAT 97
[2023-03-10] MEDS: OLANZapine 5 mg ODT PO (14:57)
[2023-03-10] MEDS: trazodone 50 mg Tablet PO (19:27)
[2023-03-10 19:28] VITALS: BP 91/64; PULSE 86; RESP 16; TEMP 36.4; O2SAT 100
[2023-03-11 06:00] VITALS: BP 92/60; PULSE 83; RESP 16; TEMP 36.4; O2SAT 98
[2023-03-11] MEDS: paliperidone ER 6 mg Tablet PO (08:12)
[2023-03-11] MEDS: nicotine 2 mg Gum BUCCAL ×3 (09:37→18:33)
[2023-03-11 13:47] VITALS: BP 93/61; PULSE 85; RESP 16; TEMP 36.9; O2SAT 99
--- NOTE | 2023-03-11 18:16 | W.PM.NPUPNS ---
Subjective NPU Subjective: Patient presented today reporting that the initiation of the Invega has been quite helpful in dispelling some of the voices. We discussed continuing to monitor. She denied any side effects to the medications other than maybe feeling somewhat tired. She was wondering about how long she would have to stay in the hospital. We discussed monitoring her for few more days which she felt was appropriate and she was supportive of in her voluntary status. Mental Status Exam MSE Comments: This is an underweight white female in hospital scrubs with limited grooming and eye contact. With slightly abnormal facies significant dental abnormalities in shape and structure/poor dentition. No abnormal movements except for psychomotor retardation. Cooperative with exam in mild to moderate distress. Speech was decreased rate and volume and slightly dysarthric. Mood described as okay, affect congruent. Thought process mostly organized. Thought content: Patient endorsed suicidal but denied homicidal ideation, there were no delusions reported but she does have paranoid and possibly persecutory delusions, she endorses auditory and visual hallucinations. Attention and concentration were intact in memory was somewhat reliable, but none were formally tested. She is alert and oriented x3. Insight and judgment are limited, impulse control is limited, intellectual ability is impaired. Vitals/I&O/Wt Last Vital Signs Temp 97.6 F 03/11/23 20:49 Pulse 82 03/11/23 20:49 Resp 17 03/11/23 20:49 BP 89/64 03/11/23 20:49 Pulse Ox 100 03/11/23 20:49 O2 Del Method Room Air 03/11/23 13:47 Data NPU 03/09/23 19:32 03/09/23 19:32 Micro: Microbiology 03/09/23 23:30 Urine Culture - Preliminary Urine,Clean Catch Gram Negative Rods Microbiology 03/09/23 23:30 Urine,Clean Catch Urine Culture - Preliminary Gram Negative Rods A&P Assessment and plan (1) Suicidal ideation: (2) JAYSON (generalized anxiety disorder): (3) Intellectual disability: (4) Acute psychosis: (5) Major depressive disorder: (6) Cannabis use disorder: Plan This is a 32 and some ulgnkiqam-tink-tmy white female with a long history of mental health and some addiction reporting issues who presents some active psychosis and lethality with concerns for cluster B pathology. 1.? Continue current medication.? We will evaluate for medication changes including the introduction of another mood stabilizer versus increasing Seroquel. Also consider restarting Lexapro versus another antidepressant. We started Invega 6 mg p.o. every morning and have discussed the possibility of moving it to bedtime. 2.? Continue every 15 minute checks for safety. 3.? Intermittent, group and milieu therapy. 4.? Encourage follow-up with sober living treatment at the highest level of care to which she is willing to commit. Involuntary Hold Information 96 Hour Hold: 96 Hour Involuntary Admission: No Attestations NPU Medical Necessity Statement*: Inpatient hospitalization is medically necessary and the clinically appropriate intervention at this time. We will monitor medications and make changes as indicated. Likely length of stay 2-4 days. Coding Level of Care Code Acute Code for g Fwd Diagnoses Suicidal ideation R45.851 JAYSON (generalized anxiety disorder) F41.1 Intellectual disability F79 Acute psychosis F23 Major depressive disorder F32.9 Cannabis use disorder F12.90
[2023-03-11] MEDS: trazodone 50 mg Tablet PO (20:36)
[2023-03-11 20:49] VITALS: BP 89/64; PULSE 82; RESP 17; TEMP 36.4; O2SAT 100
[2023-03-12] MEDS: hyDROXYzine 25 mg Capsule 50 MG PO ×2 (00:07→20:59)
[2023-03-12] MEDS: trazodone 50 mg Tablet PO (00:07)
[2023-03-12] MEDS: nicotine 2 mg Gum BUCCAL ×4 (00:09→20:59)
[2023-03-12 06:00] VITALS: BP 95/59; PULSE 83; RESP 16; TEMP 36.7; O2SAT 97
[2023-03-12] MEDS: paliperidone ER 6 mg Tablet PO (08:25)
[2023-03-12 14:00] VITALS: BP 93/62; PULSE 90; RESP 16; TEMP 37; O2SAT 93
--- NOTE | 2023-03-12 16:23 | W.PM.NPUPNS ---
Subjective NPU Subjective: Patient presented today reporting that she is continuing to have modest improvement on a daily basis. We discussed continuing to work on her discharge plan and the likelihood of discharge in the next 48 hours. She reports she is feeling optimistic and positive about having come to the hospital. She reports that she is doing well on the medication and denied any major side effects. Mental Status Exam MSE Comments: This is an underweight white female in hospital scrubs with limited grooming and eye contact. With slightly abnormal facies significant dental abnormalities in shape and structure/poor dentition. No abnormal movements except for psychomotor retardation. Cooperative with exam in mild distress. Speech was decreased rate and volume and slightly dysarthric. Mood described as okay, affect congruent. Thought process mostly organized. Thought content: Patient endorsed suicidal but denied homicidal ideation, there were no delusions reported but she does have paranoid and possibly persecutory delusions, she endorses auditory and visual hallucinations. Attention and concentration were intact in memory was somewhat reliable, but none were formally tested. She is alert and oriented x3. Insight and judgment are limited, impulse control is limited, intellectual ability is impaired. Vitals/I&O/Wt Last Vital Signs Temp 98.6 F 03/12/23 14:00 Pulse 90 03/12/23 14:00 Resp 16 03/12/23 14:00 BP 93/62 03/12/23 14:00 Pulse Ox 93 03/12/23 14:00 O2 Del Method Room Air 03/12/23 14:00 Data NPU 03/09/23 19:32 03/09/23 19:32 Micro: Microbiology 03/09/23 23:30 Urine Culture - Final Urine,Clean Catch Escherichia coli Microbiology 03/09/23 23:30 Urine,Clean Catch Urine Culture - Final Escherichia coli A&P Assessment and plan (1) Suicidal ideation: (2) JAYSON (generalized anxiety disorder): (3) Intellectual disability: (4) Acute psychosis: (5) Major depressive disorder: (6) Cannabis use disorder: Plan This is a 32 and some jyrtvdfcs-[id number]-png white female with a long history of mental health and some addiction reporting issues who presents some active psychosis and lethality with concerns for cluster B pathology. 1.? Continue current medication.? We will evaluate for medication changes including the introduction of another mood stabilizer versus increasing Seroquel. Also consider restarting Lexapro versus another antidepressant. We started Invega 6 mg p.o. every morning and have discussed the possibility of moving it to bedtime. 2.? Continue every 15 minute checks for safety. 3.? Intermittent, group and milieu therapy. 4.? Encourage follow-up with sober living treatment at the highest level of care to which she is willing to commit. Involuntary Hold Information 96 Hour Hold: 96 Hour Involuntary Admission: No Attestations NPU Medical Necessity Statement*: Inpatient hospitalization is medically necessary and the clinically appropriate intervention at this time. We will monitor medications and make changes as indicated. Likely length of stay 1-3 days. Coding Level of Care Code Acute Code for Chg Fwd Diagnoses Suicidal ideation R45.851 JAYSON (generalized anxiety disorder) F41.1 Intellectual disability F79 Acute psychosis F23 Major depressive disorder F32.9 Cannabis use disorder F12.90
[2023-03-12 21:38] VITALS: BP 93/62; PULSE 78; RESP 18; TEMP 37; O2SAT 98
[2023-03-13 06:00] VITALS: BP 97/66; PULSE 99; RESP 17; O2SAT 98
[2023-03-13] MEDS: paliperidone ER 6 mg Tablet PO (08:02)
[2023-03-13 14:00] VITALS: BP 101/67; PULSE 81; RESP 16; TEMP 36.7; O2SAT 99
[2023-03-13] MEDS: nicotine 2 mg Gum BUCCAL ×2 (15:18→23:04)
--- NOTE | 2023-03-13 17:56 | W.PM.NPUPNS ---
Subjective NPU Subjective: Patient presented today reporting that she is feeling okay. We had discussed the risks, benefits and alternatives of adding BuSpar 10 mg p.o. twice daily and she understood and agreed to proceed as is documented in this note. She denied any issues with the medication being initiated and we agree we will monitor for efficacy. We also discussed a plan for discharge in the next 48 hours. Mental Status Exam MSE Comments: This is an underweight white female in hospital scrubs with limited grooming and eye contact. With slightly abnormal facies significant dental abnormalities in shape and structure/poor dentition. No abnormal movements except for psychomotor retardation. Cooperative with exam in mild distress. Speech was decreased rate and volume and slightly dysarthric. Mood described as okay, affect congruent. Thought process mostly organized. Thought content: Patient denied suicidal or homicidal ideation, there were no delusions reported but she does have diminishing paranoid and possibly persecutory delusions, she denied current auditory or visual hallucinations. Attention and concentration were intact in memory was somewhat reliable, but none were formally tested. She is alert and oriented x3. Insight and judgment are limited, impulse control is limited, intellectual ability is impaired. Vitals/I&O/Wt Last Vital Signs Temp 97.5 F L 03/13/23 20:42 Pulse 95 03/13/23 20:42 Resp 16 03/13/23 20:42 BP 104/68 03/13/23 20:42 Pulse Ox 98 03/13/23 20:42 O2 Del Method Room Air 03/13/23 20:42 Data NPU 03/09/23 19:32 03/09/23 19:32 A&P Assessment and plan (1) Suicidal ideation: (2) JAYSON (generalized anxiety disorder): (3) Intellectual disability: (4) Acute psychosis: (5) Major depressive disorder: (6) Cannabis use disorder: Plan This is a 32 and some swxeyqkob-ibuc-tbg white female with a long history of mental health and some addiction reporting issues who presents some active psychosis and lethality with concerns for cluster B pathology. 1.? Continue current medication.? We will evaluate for medication changes including the introduction of another mood stabilizer versus increasing Seroquel. Also consider restarting Lexapro versus another antidepressant. We started Invega 6 mg p.o. every morning and have discussed the possibility of moving it to bedtime. Added BuSpar 10 mg p.o. twice daily. 2.? Continue every 15 minute checks for safety. 3.? Intermittent, group and milieu therapy. 4.? Encourage follow-up with sober living treatment at the highest level of care to which she is willing to commit. Involuntary Hold Information 96 Hour Hold: 96 Hour Involuntary Admission: No Attestations NPU Medical Necessity Statement*: Inpatient hospitalization is medically necessary and the clinically appropriate intervention at this time. We will monitor medications and make changes as indicated. Likely length of stay 1-3 days. Coding Level of Care Code Acute Code for Chg Fwd Diagnoses Suicidal ideation R45.851 JAYSON (generalized anxiety disorder) F41.1 Intellectual disability F79 Acute psychosis F23 Major depressive disorder F32.9 Cannabis use disorder F12.90
[2023-03-13 20:42] VITALS: BP 104/68; PULSE 95; RESP 16; TEMP 36.4; O2SAT 98
[2023-03-13] MEDS: BuSPIRONE 10 mg Tablet PO (21:05)
[2023-03-13] MEDS: trazodone 50 mg Tablet PO (23:02)
[2023-03-14 06:00] VITALS: BP 91/62; PULSE 96; RESP 16; TEMP 36.6; O2SAT 97
[2023-03-14] MEDS: nicotine 2 mg Gum BUCCAL ×2 (07:51→15:01)
[2023-03-14] MEDS: BuSPIRONE 10 mg Tablet PO ×2 (08:05→17:05)
[2023-03-14] MEDS: paliperidone ER 6 mg Tablet PO (08:05)
[2023-03-14 14:00] VITALS: BP 105/68; PULSE 80; RESP 14; TEMP 36.8; O2SAT 98
--- NOTE | 2023-03-14 15:47 | W.PM.NPUPNS ---
Subjective NPU Subjective: Patient presented today reporting that she is feeling fine. She reports the medication has helped and she is currently hopeful that discharge will come sooner than later. We discussed the likelihood of discharge tomorrow and we discussed her UTI symptoms and her growth of E. coli. We discussed the risks, benefits and alternatives of starting Bactrim DS twice daily x3 days and she understood and agreed to proceed as is documented in this note. Mental Status Exam MSE Comments: This is an underweight white female in hospital scrubs with limited grooming and eye contact. With slightly abnormal facies significant dental abnormalities in shape and structure/poor dentition. No abnormal movements except for mild psychomotor retardation. Cooperative with exam in mild distress. Speech was decreased rate and volume and slightly dysarthric. Mood described as a little better, affect congruent. Thought process mostly organized. Thought content: Patient denied suicidal or homicidal ideation, there were no delusions reported but she does have diminishing paranoid and possibly persecutory delusions, she denied current auditory or visual hallucinations. Attention and concentration were intact in memory was somewhat reliable, but none were formally tested. She is alert and oriented x3. Insight and judgment are limited, impulse control is limited, intellectual ability is impaired. Vitals/I&O/Wt Last Vital Signs Temp 98.3 F 03/14/23 14:00 Pulse 80 03/14/23 14:00 Resp 14 03/14/23 14:00 BP 105/68 03/14/23 14:00 Pulse Ox 98 03/14/23 14:00 O2 Del Method Room Air 03/14/23 14:00 03/14/23 03/14/23 03/14/23 06:59 14:59 22:59 Intake Total 480 / 480 Balance 480 / 480 Data NPU 03/09/23 19:32 03/09/23 19:32 A&P Assessment and plan (1) Suicidal ideation: (2) JAYSON (generalized anxiety disorder): (3) Intellectual disability: (4) Acute psychosis: (5) Major depressive disorder: (6) Cannabis use disorder: Plan This is a 32 and some nkppmupmo-wnic-otn white female with a long history of mental health and some addiction reporting issues who presents some active psychosis and lethality with concerns for cluster B pathology. 1.? Continue current medication.? We will evaluate for medication changes including the introduction of another mood stabilizer versus increasing Seroquel. Also consider restarting Lexapro versus another antidepressant. We started Invega 6 mg p.o. every morning and have discussed the possibility of moving it to bedtime. Added BuSpar 10 mg p.o. twice daily. Started Bactrim DS twice daily x3 days for E. coli UTI. 2.? Continue every 15 minute checks for safety. 3.? Intermittent, group and milieu therapy. 4.? Encourage follow-up with sober living treatment at the highest level of care to which she is willing to commit. 5. Tentative discharge tomorrow. Involuntary Hold Information 96 Hour Hold: 96 Hour Involuntary Admission: No Attestations NPU Medical Necessity Statement*: Inpatient hospitalization is medically necessary and the clinically appropriate intervention at this time. We will monitor medications and make changes as indicated. Likely length of stay 1-2 days. Coding Level of Care Code Acute Code for Chg Fwd Diagnoses Suicidal ideation R45.851 JAYSON (generalized anxiety disorder) F41.1 Intellectual disability F79 Acute psychosis F23 Major depressive disorder F32.9 Cannabis use disorder F12.90
[2023-03-14] MEDS: sulfamethoxazole-trimeth DS 160-800 mg Tablet 1 TAB PO (17:05)
[2023-03-14 20:10] VITALS: BP 93/63; PULSE 66; RESP 17; O2SAT 94
[2023-03-14] MEDS: trazodone 50 mg Tablet PO (23:20)
[2023-03-15 06:00] VITALS: BP 102/65; PULSE 16; RESP 102; TEMP 36.7; O2SAT 94
[2023-03-15] MEDS: nicotine 2 mg Gum BUCCAL (06:46)
[2023-03-15] MEDS: sulfamethoxazole-trimeth DS 160-800 mg Tablet 1 TAB PO (09:05)
[2023-03-15] MEDS: BuSPIRONE 10 mg Tablet PO (09:05)
[2023-03-15] MEDS: paliperidone ER 6 mg Tablet PO (09:05)
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
[2023-03-15 13:29] VITALS: BP 102/65; PULSE 16; RESP 102; TEMP 36.7; O2SAT 94
== END 2023-03-15 14:39 | disposition home or self-care (01) | DRG 883 ==
LOC: ER 20:44 → NP 21:03
PROVIDERS: Admitting Provider Psychiatry & Neurology Psychiatry; Emergency Provider Emergency Medicine; PCP Specialist; Visit Provider Psychiatry & Neurology Psychiatry
DX: F60.89 Other specific personality disorders (principal); F23 Brief psychotic disorder; R45.851 Suicidal ideations; Z91.148 Patient's other noncompliance with medication regimen for other reason; Z62.810 Personal history of physical and sexual abuse in childhood; Z62.811 Personal history of psychological abuse in childhood; F79 Unspecified intellectual disabilities; F17.210 Nicotine dependence, cigarettes, uncomplicated
CPT/HCPCS: 36415; 80053; 80306; 80307; 81001; 81003; 81025; 85025; 87077; 87086; 87186; 97150; 97165; 99238; 99285